=== PATIENT | female | born 1960 | race African-American/Black ===

== ENCOUNTER 2022-07-08 11:41 | Emergency (ER) | payer OTHER ==
[~2022-07-08 11:41] MED LIST: 24 HOUR ALLERG9.9 ML; ABILIFY5 MG PO; ALLERGY SYRING1 EAC1 IJ; BENZTROPINE MESY1 MG PO; CYMBALTA60 MG PO; DEXILANT60 MG PO; EPIPEN0.3 MG/0.3 IJ; GABAPENTIN600 MG PO; MINIPRES1 MG PO; MOBIC7.5 MG PO; MONTELUKAST SOD10 MG PO; NEURONTIN300 MG PO; PERCOCET 5-3251 EACH PO; PREDNISONE 20MG20 MG PO; RANITIDINE HCL150 M1 PO; TERBINAFINE HC250 MG PO; VENTOLIN HFA IN18 GM INH; ZYRTEC10 M3 PO
[2022-07-08 13:19] LABS: INFLUENZA A NAA NEGATIVE (NEGATIVE)
[2022-07-08 13:28] LABS: BASOPHIL 0.2 % (0-2); EOSINOPHIL 2.9 % (0-5); HCT 35.3 % (37.0-47.0); HGB 11.2 g/dl (12.5-16.0); LYMPHOCYTE 12.2 % (15-48); MCH 28.6 pg (25.0-31.0); MCHC 31.7 g/dL (32.0-36.0); MCV 90.3 fL (78.0-100.0); MONOCYTE 6.4 % (0-12); MPV 9.8 fL (6.0-9.5); NEUTROPHIL 77.9 % (41-80); NRBC 0; PLT 241 K/uL (150-400); RBC 3.91 M/uL (4.20-5.40); RDW 14.8 % (11.5-14.0); WBC 8.3 K/uL (4.0-10.5)
[2022-07-08 13:36] LABS: CORONAVIRUS 2019 SARS-COV-2 POSITIVE (NEGATIVE)
[2022-07-08 13:36] LABS: BILIRUBIN NEGATIVE (NEGATIVE); BLOOD NEGATIVE Ery/uL (NEGATIVE); CLARITY CLEAR (CLEAR); COLOR YELLOW (YELLOW); GLUCOSE (U) NORMAL (NORMAL); LEUKOCYTES NEGATIVE Leu/uL (NEGATIVE); NITRITE NEGATIVE (NEGATIVE); PROTEIN NEGATIVE (NEGATIVE); SPECIFIC GRAVITY <=1.005 (1.001-1.030); UROBILINOGEN 0.2 mg/dL (0.2-1.0)
[2022-07-08 13:59] LABS: ALBUMIN 3.3 g/dL (3.4-5.0); BILIRUBIN - TOTAL 0.3 mg/dL (0.2-1.0); BUN/CREAT RATIO (CALC) 13.8 RATIO; CREATININE 0.87 mg/dL (0.51-0.95); GLOBULIN (CALCULATION) 3.9 g/dL; TOTAL PROTEIN 7.2 g/dL (6.4-8.2)
[2022-07-08] MEDS ORDERED: PAXLOVID 150-11 EACH PO (14:50)
== END 2022-07-08 15:00 | disposition home or self-care (01) ==
LOC: FER 11:41
PROVIDERS: Emergency Medicine; Nurse Practitioner Family
DX: U07.1 COVID-19 (principal); J44.9 Chronic obstructive pulmonary disease, unspecified; Z88.6 Allergy status to analgesic agent
CPT/HCPCS: 36415; 71045; 80053; 81003; 83605; 84145; 85025; 87040; 87880; J7030; U0002